=== PATIENT | male | born 2000 | race Caucasian/White ===

== ENCOUNTER 2024-12-01 08:13 | Outpatient (CLI) | payer BC, SELFPAY ==
--- NOTE | 2024-12-01 08:45 | MR_ITS ---
WS: [id number] MRI HEAD WITHOUT CONTRAST TECHNIQUE: Sagittal T1, T2 axial, T2 axial FLAIR, axial and coronal T1 images, axial susceptibility weighted imaging, axial diffusion weighted images, and coronal T2 images were obtained. 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 COMPARISON: CT head 10/07/2023 FINDINGS: No evidence of restricted diffusion to suggest acute ischemia. No suspicious intracranial signal abnormalities. Normal posterior fossa. Normal vascular flow voids at the skull base. No extra-axial fluid collections. No evidence of mass or mass effect. Small retention cyst RIGHT maxillary sinus. Mastoid air cells are well aerated. No hemosiderin on susceptibility-weighted images. Normal optic chiasm and pituitary infundibulum. Temporal lobes and hippocampal formations are normal in appearance. Normal mesial temporal lobes. Normal cavernous sinuses. No other suspicious findings. MR/MR head wo con* [id number] IMPRESSION: 1. Temporal lobes and hippocampal formations are normal in appearance. 2. No suspicious intracranial signal abnormalities. 3. No hemosiderin on the susceptibility weighted images.
== END 2024-12-01 08:14 | disposition home or self-care (01) ==
PROVIDERS: Visit Provider Specialist
DX: G40.309 Generalized idiopathic epilepsy and epileptic syndromes, not intractable, without status epilepticus (principal); M27.40 Unspecified cyst of jaw
CPT/HCPCS: 70551